=== PATIENT | female | born 1970 | race Two or more races ===

== ENCOUNTER 2021-08-03 21:17 | Emergency (ER) | payer SELFPAY ==
[~2021-08-03] VITALS: Ht 170.2 cm; Wt 120.2 kg
[2021-08-03 21:17] VITALS: BP 126/63
== END 2021-08-04 01:31 | disposition left against medical advice (07) ==
LOC: ER 21:17
DX: N76.0 Acute vaginitis (principal); Z53.21 Procedure and treatment not carried out due to patient leaving prior to being seen by health care provider